=== PATIENT | female | born 2000 | race Caucasian/White ===

== ENCOUNTER 2024-05-23 15:53 | Outpatient (CLI) | payer OTHER, SELFPAY ==
--- NOTE | ~2024-05-23 | US_ITS ---
EXAMINATION: US OB <= 14 weeks fetus DATE: 05/23/2024 16:28 INDICATION: Establish dating of a likely first trimester of uncertain dates. TECHNIQUE: Real-time pelvic ultrasound utilizing transabdominal probe was performed. The quiana bian radiologist was not present for the study. COMPARISON: None. FINDINGS: The uterus measures 8.9 x 5.6 x 6.6 cm. There is an intrauterine gestational sac. A yolk sac and fet al pole are identified. The crown rump length measures 1.7 cm, which correlates with an estimated ges tational age of 8 weeks and 0 days. heart motion is identified measuring 151 beats per minute ( bpm) by M-mode Doppler. The bilateral ovaries are not visualized. There is no free fluid in the pelvi s. IMPRESSION: 1. Single living fetus with heart rate of 151 bpm. 2. Gestational age by ultrasound of 8 weeks 0 day(s) +/- 5 day(s) with ultrasound estimated date of delivery (CLAUDIA) of 01/02/2025. Reviewed, dictated and finalized at location A. IMPRESSION: 1. Single living fetus with heart rate of 151 bpm. 2. Gestational age by ultrasound of 8 weeks 0 day(s) +/- 5 day(s) with ultraso und estimated date of delivery (CLAUDIA) of 01/02/2025.
== END 2024-05-23 15:54 ==
PROVIDERS: PCP Advanced Practice Midwife; Visit Provider Advanced Practice Midwife
DX: Z36.87 Encounter for antenatal screening for uncertain dates (principal); Z3A.08 8 weeks gestation of pregnancy
CPT/HCPCS: 76801

== ENCOUNTER 2024-07-28 13:48 | Observation (INO) | payer OTHER, SELFPAY ==
[2024-07-28 14:16] VITALS: BP 123/54; PULSE 69
[2024-07-28 14:30] VITALS: BP 107/58; PULSE 80
--- NOTE | 2024-07-28 14:39 | OBADM ---
This patient, Celia Koehler, admitted to the OB room OB Post 117 for observation. Patient/family oriented to hospital policies and general routines including ID bracelet, bed and alarms, visiting hours, pain management, procedures, bathroom and other care routines, personal items, smoking policy, room service/diet, and visiting hours. Patient/Family are encouraged to report perceived risks to care and to ask questions if they do not understand what they are told or what they should do.
[2024-07-28 14:46] VITALS: BP 108/52; PULSE 85
[2024-07-28 15:00] VITALS: BP 106/58; PULSE 70
--- NOTE | 2024-07-28 15:21 | PC.NURSE ---
1400--Pt reports fall and scrape on lower left abdomen. Pt denies falling directly on abdomen, denies bleeding, leaking or cramping. reports swollen ankle so directed to go to ED if pain continues.
--- NOTE | 2024-07-28 15:27 | PC.NURSE ---
1526--Reported to Gela Villalobos CNM that KB would not be resulted until 1800. DC orders given and pt will be notified if positive result.
--- NOTE | 2024-08-05 14:36 | PM.OBTRLD ---
OB - Triage/Final Diagnosis Visit Information Date of evaluation: 07/28/24 Reason for evaluation: other (minor trauma) Comments/Additional reasons for admission: I have assessed the risk for this patient, Celia Koehler, and determined that she would benefit from observation care. Evaluation Laboratory results: Laboratory Tests 07/28/24 14:26 KB Hemoglobin Negative Comments: Pt evaluated on unit by RN. Plan of care discussed with CNM. FHTs reassuring. VSS. No evidence of active labor or ROM.
== END 2024-07-28 15:40 | disposition home or self-care (01) ==
PROVIDERS: Admitting Provider Obstetrics & Gynecology Gynecology; PCP Internal Medicine; Visit Provider Obstetrics & Gynecology Gynecology
DX: Z04.3 Encounter for examination and observation following other accident (principal); O26.892 Other specified pregnancy related conditions, second trimester; W19.XXXA Unspecified fall, initial encounter; Z3A.17 17 weeks gestation of pregnancy
CPT/HCPCS: 36415; 85460; G0378; G0379

== ENCOUNTER 2024-08-10 11:15 | Outpatient (CLI) | payer OTHER, SELFPAY ==
--- NOTE | ~2024-08-10 | US_ITS ---
EXAMINATION: US OB /maternal detail DATE: 08/10/2024 12:00 INDICATION: survey TECHNIQUE: Multiple obstetric sonographic images performed. FINDINGS: No prior studies for comparison. There is a single living fetus in vertex presentation. The placenta is posterior/fundal without plac enta previa. Amniotic fluid volume is subjectively normal. cardiac activity and movement is noted with a heart rate of beats per minute. The following anatomy was identified as normal: 4 chamber heart 3 vessel cord cord insertion kidneys urinary bladder stomach spine diaphragm ventricles cisterna magna cerebellum The following biometric data were obtained: BPD: 49mm corresponds to gestational age 20 weeks 5 days. Head circumference: 175 mm corresponds to gestational age 20 weeks 0 days. Abdominal circumference: 139 mm corresponds to gestational age 19 weeks 2 days. Femur length: 29 mm corresponds to gestational age 19 weeks 0 days. Head circumference to abdominal circumference ratio: 1.26 (normal range for expected gestational age is 1.08-1.26). Estimated weight: 285 grams +/- 43 grams using Hadlock method. IMPRESSION: 1: Single living intrauterine with an estimated gestational age of 19weeks 3days by initial ultrasound measurements, with an EDC of 01/01/2020 in vertex presentation. 2. Normal survey. Reviewed, dictated and finalized at location B. IMPRESSION: 1: Single living intrauterine with an estimated gestational age of 19 weeks 3days by initial ultrasound measurements, with an EDC of 01/01/2020 in parisa sharon presentation. 2. Normal survey.
== END 2024-08-10 11:16 | disposition home or self-care (01) ==
LOC: MICIMG 11:16
PROVIDERS: PCP Advanced Practice Midwife; Visit Provider Advanced Practice Midwife
DX: Z36.9 Encounter for antenatal screening, unspecified (principal); Z3A.19 19 weeks gestation of pregnancy
CPT/HCPCS: 76805

== ENCOUNTER 2024-10-14 09:08 | Outpatient (CLI) | payer OTHER, SELFPAY ==
[2024-10-14 10:37] LABS: Hematocrit 35.3 % (37.0-47.0); Hemoglobin 11.9 g/dL (12.0-15.0)
[2024-10-14 10:58] LABS: Glucose 1 Hour PP 50gm Dose 109 mg/dL
[2024-10-14 11:23] LABS: Vitamin D 25 Hydroxy 36.3 ng/mL
[2024-10-14 11:39] LABS: HIV 1/2 Ab P24 Ag Result Negative (Negative)
[2024-10-14] MEDS: RHO(D) IMMUNE GLOBULIN 300 MCG/2 ML SYRINGE IM (13:51)
[2024-10-15 08:22] LABS: Rapid Plasma Reagin Non-Reactive (NonReactive)
== END 2024-10-14 09:09 | disposition home or self-care (01) ==
LOC: ANHLAB 09:10
PROVIDERS: PCP Internal Medicine; Visit Provider Advanced Practice Midwife
DX: O36.0990 Maternal care for other rhesus isoimmunization, unspecified trimester, not applicable or unspecified (principal); Z67.91 Unspecified blood type, Rh negative; O99.280 Endocrine, nutritional and metabolic diseases complicating pregnancy, unspecified trimester; E55.9 Vitamin D deficiency, unspecified; Z36.9 Encounter for antenatal screening, unspecified
CPT/HCPCS: 36415; 82306; 82947; 85014; 85018; 85461; 86592; 86703; 86850; 86900; 86901; 90384; 96372; G0432; J2790

== ENCOUNTER 2024-10-26 09:41 | Outpatient (CLI) | payer OTHER, SELFPAY ==
--- NOTE | ~2024-10-26 | US_ITS ---
OB follow-up ULTRASOUND (Doppler ultrasound interrogation techniques used as needed for this exam.) Ordering provider: Karyn Villalobos CNM History: . size less than date . Comparison: None. Findings: : Single live fetus of longitudinal lie and vertex presentation. Single intrauterine fetus with heart rate measured at 134 bpm. -- BIOMETRICS: BPD: 82 mm = 32 weeks and 5 days. HC: 290 mm = 31 weeks and 6 days. FL: 55 mm = 29 weeks and 0 days. AC: 261 mm = 30 weeks and 2 days. HC/AC: 1.11 FL/BPD: 67.6 FL/AC: 21.1. CI: 81.4 Mean US age is 31 weeks for an CLAUDIA on December 28, 2024. Extrapolated weight is 1531 gm. EFW/GP: 35%. Three vessel cord is seen. Amniotic fluid volume is subjectively within normal limits. Measuring 17.6 cm. 5th percentile is 9 cm . 95th percentile is 23.4 cm. Largest pocket measures 5.2 cm. No evidence for significant placental anomalies including placenta previa. Mesentery as posterior The cervical length is 3.1 cm which is within normal limits. IMPRESSION: Single live fetus of gestation age 31 weeks. CLAUDIA is December 28, 2024. Reviewed, dictated and finalized at location A. FRAME SYSTEMS ADMINISTRATOR
== END 2024-10-26 09:42 | disposition home or self-care (01) ==
LOC: MICIMG 09:41
PROVIDERS: PCP Advanced Practice Midwife; Visit Provider Advanced Practice Midwife
DX: O36.5930 Maternal care for other known or suspected poor fetal growth, third trimester, not applicable or unspecified (principal); Z3A.31 31 weeks gestation of pregnancy
CPT/HCPCS: 76816

== ENCOUNTER 2024-12-30 04:05 | Observation (INO) | payer OTHER, SELFPAY ==
[2024-12-30 06:00] VITALS: BP 107/70; PULSE 87
[2024-12-30 06:02] VITALS: BMI 28.4
--- OUTSIDE RECORDS SUMMARY | 2024-12-30 06:02 | XMS_ITS | Clinical Summary ---
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 Gender Identity Not on file Sexual Orientation Not on file Plan of Treatment Health Maintenance Due Date Last Done Comments Hepatitis C Virus (HCV) Screening 1999 Human Papillomavirus (HPV) Immunization (1 - 3-dose series) 2014 Pap Smear 2020 Influenza Immunization (#1) 2024 SARS-COV-2 Immunization ( season) 2024 Respiratory Syncytial Virus (RSV) Immunization (Adult) (1 - 1-dose 75+ series) 2074 Hepatitis B Immunization Completed 001, 07/07/2000, 04/01/2000 DTaP/Tdap/Td Immunization Discontinued 2009, 07/14/2004, 06/21/2001, Additional history exists TdaP Immunization Completed 07/05/2010 Meningococcal Immunization (ACWY) Completed 07/26/2016 Pneumococcal Immunization Combined Aged Out No longer eligible based on patient's age to complete this topic Rotavirus Immunization Aged Out No lo nger eligible based on patient's age to complete this topic
--- NOTE | 2024-12-30 06:14 | PC.NURSE ---
Pt discharged home undelivered in stable condition per order from Dr. Prieto. Discharge instructions explained and given to pt, pt stated understanding, all questions and concerns answered. Pt ambulated out of department with all belongings.
== END 2024-12-30 06:20 | disposition home or self-care (01) ==
PROVIDERS: Admitting Provider Obstetrics & Gynecology Gynecology; PCP Advanced Practice Midwife; Visit Provider Obstetrics & Gynecology Gynecology
DX: O47.1 False labor at or after 37 completed weeks of gestation (principal); Z3A.39 39 weeks gestation of pregnancy
CPT/HCPCS: G0378; G0379

== ENCOUNTER 2024-12-30 16:39 | Observation (INO) | payer OTHER, SELFPAY ==
--- OUTSIDE RECORDS SUMMARY | 2024-12-30 19:03 | XMS_ITS | Clinical Summary ---
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
--- NOTE | 2025-01-01 07:52 | PM.OBTRLD ---
OB - Triage/Final Diagnosis Visit Information Reason for evaluation: threatened labor Comments/Additional reasons for admission: I have assessed the risk for this patient, Celia Vicente Koehler, and determined that she would benefit from observation care.
== END 2024-12-30 19:22 | disposition home or self-care (01) ==
PROVIDERS: Admitting Provider Obstetrics & Gynecology Gynecology; PCP Advanced Practice Midwife; Visit Provider Obstetrics & Gynecology Gynecology
DX: O47.9 False labor, unspecified (principal); Z3A.00 Weeks of gestation of pregnancy not specified
CPT/HCPCS: G0378; G0379

== ENCOUNTER 2024-12-30 23:41 | Inpatient (IN) | payer OTHER, SELFPAY ==
[2024-12-31] VITALS (142 sets, daily range): BP systolic 57–124; BP diastolic 26–83; PULSE 58–152; RESP 16–18; TEMP 36.3–37.1; O2SAT 93–100; BMI 28.1
--- OUTSIDE RECORDS SUMMARY | 2024-12-31 00:04 | XMS_ITS | Clinical Summary ---
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
[2024-12-31] MEDS: LACTATED RINGERS 1,000 ML 125 ML IV CONT ×2 (00:12→01:41)
--- NOTE | 2024-12-31 00:12 | LDADM ---
This patient, Celia Koehler, was admitted to Labor/Delivery/Recovery 106 on 12/30/24 at 23:41. Plans for labor, pain management and were discussed with patient. Patient/family oriented to hospital policies and general routines including ID bracelet, bed and alarms, visiting hours, pain management, procedures, bathroom and other care routines, personal items, smoking policy, room service/diet and guest tray routines, security routines, and visiting hours. Patient/Family are encouraged to report perceived risks to care and to ask questions if they do not understand what they are told or what they should do. See OBIX for further documentation.
[2024-12-31 00:24] LABS: Basophils Percent Auto 0.3 % (0.2-1.2); Eosinophils Absolute Auto 0.2 K/mm3 (0-0.3); Hematocrit 38.2 % (37.0-47.0); Hemoglobin 13.2 g/dL (12.0-15.0); Immature Granulocyte Absolute 0.05 K/mm3 (0.00-0.031); Immature Granulocyte Percent A 0.3 % (0-0.5); Lymphocytes Percent Auto 24.7 % (18.3-44.2); Mean Corpuscular HGB Conc 34.6 g/dl (32-36); Mean Corpuscular Hemoglobin 30.8 pg (26-34); Mean Corpuscular Volume 89.3 fl (80-100); Mean Platelet Volume 10.8 fl (7.4-10.4); Monocytes Absolute Auto 0.9 K/mm3 (0.1-0.6); Monocytes Percent Auto 6.2 % (2.6-8.5); Neutrophils Absolute Auto 9.8 K/mm3 (1.3-6.7); Neutrophils Percent Auto 67.5 % (45.5-73.1); Platelet Count Result 297 k/mm3 (150-375); Red Blood Count 4.28 M/mm3 (4.2-5.4); White Blood Count 14.6 K/mm3 (4.5-10.0)
[2024-12-31 01:14] LABS: HIV 1/2 Ab P24 Ag Result Negative (Negative)
--- NOTE | 2024-12-31 01:56 | P.PNAN_ITS ---
Anes - Eval Pre Procedure Procedure: Labor epidural Date/Time: 12/31/24 01:56 Surgeon: José Preop Diagnosis: Abdominal pain with contractions Pre Op Diagnosis: Contractions Patient Data Age: 24 Gender: F Height: 1.68 m Weight: 79.09 kg Last Vital Signs Temp 97.8 F 12/31/24 01:24 Pulse 69 12/31/24 01:45 BP 123/73 12/31/24 01:45 Pulse Ox 99 12/31/24 01:54 O2 Del Method Room Air 12/31/24 00:12 Allergies Allergy/AdvReac Type Severity Reaction Status Date / Time walnut Allergy Mild Swelling Verified 12/14/24 12:26 of Lip/Tongue/Throat Penicillins Allergy Unknown Rash Verified 12/14/24 12:26 fish Allergy Mild wheezing Uncoded 12/14/24 12:26 shellfish Allergy Mild wheezing Uncoded 12/14/24 12:26 Home Medications ?Medication ?Instructions ?Recorded ?Confirmed ?Type hydroxyzine HCl 25 mg tablet 25 mg PO BID PRN anxiety #60 tabs 07/07/22 Rx Laboratory Tests 12/31/24 00:07 WBC 14.6 H K/mm3 (4.5-10.0) RBC 4.28 M/mm3 (4.2-5.4) Hgb 13.2 g/dL (12.0-15.0) Hct 38.2 % (37.0-47.0) MCV 89.3 fl (80-100) MCH 30.8 pg (26-34) MCHC 34.6 g/dl (32-36) RDW 13.0 % (11.5-14.5) Plt Count 297 k/mm3 (150-375) MPV 10.8 H fl (7.4-10.4) Immature Gran % (Auto) 0.3 % (0-0.5) Neut % (Auto) 67.5 % (45.5-73.1) Lymph % (Auto) 24.7 % (18.3-44.2) [place] % (Auto) 6.2 % (2.6-8.5) Eos % (Auto) 1.0 % (0-4.4) Baso % (Auto) 0.3 % (0.2-1.2) Lymph # (Auto) 3.60 H K/mm3 (0.9-3.2) [place] # (Auto) 0.9 H K/mm3 (0.1-0.6) Eos # (Auto) 0.2 K/mm3 (0-0.3) Baso # (Auto) 0.0 K/mm3 (0.0-0.1) Abs Immat Gran (auto) 0.05 H K/mm3 (0.00-0.031) Absolute Neuts (auto) 9.8 H K/mm3 (1.3-6.7) Absolute Nucleated RBC 0.000 K/mm3 (0.0-0.012) Nucleated RBC % 0.0 % (0.0-0.2) RPR Pending RPR Titer Add Testing Pending HIV 1&2 Ab/P24 Ag 4thGn Negative (Negative) Blood Type A Negative Antibody Screen Pending : gestational age HCG: positive Patient hx anesthesia problems: none Family hx anesthesia problems: none Results Review: All pre-operative results and documents have been reviewed as part of the pre- operative evaluation. [facility] Past Medical History Medical History (Updated 12/31/24 @ 01:57 by Raymundo Reddy Jr., CRNA) and not yet delivered Overweight (BMI 25.0-29.9) Anxiety and depression Food allergy Fatigue Anxiety Surgical History Surgical History [place] teeth removed June 2019 Family History Family History Father Hypertension Mother Family history of allergic disorder Skin disorder Grandparent Family history of cardiovascular disease Fibromyalgia Social History Social History Smoking status: Never smoker Tobacco type: e-cigarettes/vaping Smokeless tobacco user: other Smoking end date: 11/13/16 Alcohol intake: current Alcohol use details: Pt drinks socially. Substance use: never Do You Feel Safe in your Home?: Yes Lack of Transportation: No Lack of Food: Never True Current Housing: I Have Housing Concerned About Future Housing: No Difficulty Paying Gas/Electric Bills: No Difficulty Paying for Meds: No Currently Unemployed: No Education: Associate Degree Difficulty w/ Childcare or Family Care: No Spiritual care concerns: No Exam Day of Procedure 12/31/24 01:56 Patient weight: overweight
[2024-12-31] MEDS: PHENYLEPHRINE 1,000 MCG/10 ML SYRINGE 100 MCG IV PUSH ×2 (02:22→02:29)
[2024-12-31] MEDS: OXYTOCIN 30 UNITS/NS 500 ML 30 UNITS/500 ML BAG IV CONT (05:00)
--- NOTE | 2024-12-31 07:40 | WPDOBADMIT ---
Obstetrics - Admit Note Admission Note: record reviewed. No pertinent additions to the history and/or any subsequent changes in the physical findings that are not consistent with the expected course of the were found. Additions to the history and/or subsequent changes in the physical findings follow. None.Here in labor. SROM around 3 am. Pitocin to augment if needed. FHT cat I
--- NOTE | 2024-12-31 09:06 | P.PCNOB_ITS ---
OB - Vaginal Delivery Note Procedure Delivery date: 12/31/24 Induction method: None Delivery augmentation: Pitocin Delivery monitor: External FHT and External Uterine Route of delivery: Episiotomy description: None Laceration Description: Periurethral (upper right vaginal to periurethral) Delivery repair: vicryl (3-0) Specimen: No Quantitative Blood Loss (ml): 100 Anesthesia type: Epidural Disposition: Floor Complications: No immediate complications [place] Baby Date of : 12/31/24 Gestational Age by Date: 39 (39 6/7) gender: Male presentation: vertex position: Right Occiput Anterior Placenta delivery description: Spontaneous Cord Vessel Description: 3 Vessels and Delayed Cord Clamping score one minute: 8 score five minutes: 9
--- NOTE | 2024-12-31 09:07 | P.DS_ITS ---
DS: Admitting Diagnosis Discharge Date 01/02/25 Admitting Diagnosis labor 39 6/7 wks DS: Discharge Diagnosis Discharge Diagnosis (1) (normal spontaneous vaginal delivery): Code(s): O80 - Encounter for full-term uncomplicated delivery Status: Acute OB - DS: Summary OB Procedures : Ultrasound OB Procedures Intrapartum: Spontaneous Vag Delivery OB Procedures: : None Peripartum Data Delivery Method: Natural Vaginal Laceration Description: Periurethral (upper right vaginal to periurethral) Episiotomy description: None complications: none Status at Discharge Functional status at discharge: independent ambulation Overall status at discharge: patient is progressing back to baseline Time Spent with Patient Time attestation: Total time spent providing and/or coordinating discharge services: DS: Data Data Completed and Pending Labs on day of discharge: Labs from last 24 hours 12/31/24 00:07 WBC 14.6 H RBC 4.28 Hgb 13.2 Hct 38.2 MCV 89.3 MCH 30.8 MCHC 34.6 RDW 13.0 Plt Count 297 MPV 10.8 H Immature Gran % (Auto) 0.3 Neut % (Auto) 67.5 Lymph % (Auto) 24.7 [place] % (Auto) 6.2 Eos % (Auto) 1.0 Baso % (Auto) 0.3 Lymph # (Auto) 3.60 H [place] # (Auto) 0.9 H Eos # (Auto) 0.2 Baso # (Auto) 0.0 Abs Immat Gran (auto) 0.05 H Absolute Neuts (auto) 9.8 H Absolute Nucleated RBC 0.000 Nucleated RBC % 0.0 RPR Pending RPR Titer Add Testing Pending HIV 1&2 Ab/P24 Ag 4thGn Negative Blood Type A Negative Antibody Screen Positive Antibody Identification Inconclusive Antigen Identification Cancelled LUIZA, IgG Interpret Negative LUIZA, Poly Interpret TNP LUIZA, Complement Interp Negative Discharge Plan Discharge Attending physician on discharge: Paulina Prieto Discharging Clinician: Paulina Prieto Anticipated Discharge Date/Time: 01/02/25 09:08 Patient Disposition: Home, Self-Care Activity: may shower and pelvic rest Diet: regular Patient Instructions: Antibiotic Form Patient Language: Belarusian Stand Alone Forms: General Discharge Information Follow-up/Referrals: Paulina Prieto MD [Physician] - 6 Weeks Discharge Medications: New norethindrone (contraceptive) 0.35 mg tablet 0.35 mg PO DAILY Qty: 84 3RF Continued hydroxyzine HCl 25 mg tablet 25 mg PO BID PRN (Reason: anxiety) Qty: 60 3RF Date of admission: 12/30/24 23:41 Primary Care Provider: Karyn Villalobos Admitting Provider: Paulina Prieto Attending physician on admission: Paulina Prieto Condition: Stable
[2024-12-31] MEDS: OXYTOCIN 30 UNITS/NS 500 ML 30 UNITS/500 ML BAG 125 UNITS IV CONT (09:10)
--- NOTE | 2024-12-31 11:40 | OBPPTRN ---
Patient transferred to post room #288 via (wheelchair). Support person present. Oriented to unit, room, information board, rooming in, admission packet and security measures. Patient verbalizes understanding.
[2024-12-31] MEDS: IBUPROFEN 600 MG TABLET PO (11:57)
[2024-12-31] MEDS: DOCUSATE SODIUM 100 MG CAPSULE PO ×2 (11:58→16:38)
[2024-12-31 12:36] LABS: Syphilis IgG/IgM Antibody Negative (Negative)
--- NOTE | 2024-12-31 12:45 | PC.NURSE ---
1245: Met with mother to assess for needs and provide initial feeding education. Mom is encouraged to allow baby lots of skin to skin time with unlimited access to . Baby is very sleepy and we tried waking him by unwrapping, placing in the open crib, and placing him skin to skin with mom. He did not rouse from his deep sleep state or make any attempts to latch or feed. Mom is encouraged to keep him skin to skin on her chest and observe for early feeding cues. If baby is not showing cues in 30 minutes, we will try to wake him again. 1320: Mother has baby skin to skin and he is still sleeping soundly. We moved him to the open crib and attempted to wake him. He roused much better than the last attempt. We placed him in football position on both sides. He gave a few attempts to open his mouth but not wide enough or eager enough to latch. Mom was able to express 4-5 drops of colostrum that were placed in baby's mouth. Encouraged mother that he is in his normal sleepy period and that we can allow him more time before trying to feed again. He is a stable, term without any risk factors for hypoglycemia. Reviewed using the blue feeding sheet to record time and duration of feeding attempts and drops of colostrum given. We will attempt again in an hour or if baby exhibits any feeding cues before that. Mother voiced understanding of the education shared, to call for assistance if the does not latch or if there is discomfort with . name/number on communication board. Reported to the Primary RN.?
--- NOTE | 2024-12-31 15:00 | PC.NURSE ---
1440- Mom up to bathroom. Will check back about feeding soon. 1500- Mom back to bed and attempting to feed for awhile. Baby is awake and crying. He is much more vigorous than our previous feeding attempts. Mom is trying in football position but baby is unable to maintain a latch. His suck was assessed with a gloved finger and he clamped down rather than sucked and seemed disorganized. We placed him in cross cradle on the left breast and he did latch 3 times with several suckles each time. Mom has drops of colostrum that leak while attempting to feed. Latching worked well when we rolled mom's nipple to help it abida a little more. Baby worked to latch for at about ten minutes and then fell into a deep sleep state. Encouraged mom that he is improving from the last time and we need to continue watching for early feeding cues. Mom is agreeable to this plan and will call out for assistance. Reported to primary RN.
[2025-01-01] MEDS: IBUPROFEN 600 MG TABLET PO ×2 (01:50→19:18)
[2025-01-01 01:52] VITALS: BP 112/75; PULSE 63; RESP 16; TEMP 36.6; O2SAT 99
[2025-01-01 06:20] LABS: Hematocrit 31.6 % (37.0-47.0); Hemoglobin 10.5 g/dL (12.0-15.0)
--- NOTE | 2025-01-01 07:00 | PC.NURSE ---
Introductions were made, then consulted with patient to assess needs related to . Feeding attempts were made overnight but were unsuccessful. Mother states that she had difficulty keeping awake for feedings. Upon entering room, was swaddled in the bassinet. This RN unwrapped infant and demonstrated methods to wake for feedings. During this time, spit up a large amount of clear fluid. Encouraged understanding of the benefits of skin to skin (demonstrating unwrapping and placing upright on her chest), stimulating with massage touch, changing positions to encourage wakefulness, how to watch for early feeding cues, responsive feeding, feeding on demand (aiming for 8-12 times in 24 hours, about every 2-3 hours), milk production, building/maintaining a milk supply, duration of feeding, signs of adequate intake/output and how to record on the feeding sheet. Mother works well with her infant with encouragement and education. Reviewed positioning and ear, shoulder, hip alignment, supporting the breast to facilitate a deep latch, asymmetrical latch (off-center), leading with the chin with a big, open, wide gape and body close to mother. Attempts were made to place on the right breast for feeding - mothers nipples are flat. After several attempts were made on the right side (with and without nipple shield) infant was switched to the left breast - latched optimally to the left breast in cross cradle position. Education given to the mother of how to visualize the suckling (with good rocking jaw motion), swallows (dropping of the lower jaw) and how to listen for drinking at the breast (the ka sound). was able to maintain latch without pain to mother protecting the nipple with optimal positioning and latching. Reviewed comfort measures of healing with a warm, wet washcloth to rinse breast, then leave open to air-dry, good handwashing when or touching the breast/nipples to prevent infection. Mother voiced understanding of skin to skin, stimulating with massage touch, responsive feedings, hand expressed colostrum, talking to to encourage if it has been 2 -2.5 hours since the start of the last , to call if infant does not latch, or if there is discomfort with . Resources used for education were facilitated with the [visual educational handouts/ tool/mom and baby guide], Inpatient/outpatient resources provided with business card, feeding sheet, name written on the communication board, and the mom/baby guide. Parents voiced understanding of information, demonstrated learning and will call if there is a request for assistance. Reported to the Primary RN.
--- NOTE | 2025-01-01 07:36 | P.PNOB_ITS ---
OB - PN: Subj Subjective Date/time seen: 01/01/25 07:36 Patient comments: no complaints and pain well controlled baby status: doing well OB - PN: Obj Data Labs 01/01/25 06:12 Labs: Laboratory Results - last 24 hr 12/31/24 01/01/25 00:07 06:12 Hgb 10.5 L Hct 31.6 L Syphilis IgG/IgM Ab Negative RPR Titer Cancelled RPR Cancelled RPR Titer Add Testing Cancelled T.pallidum Ab (FTA-ABS) Cancelled T.pall Ab(FTA-ABS)Reflex Cancelled Blood Type A Negative Antibody Screen Negative Screen Negative Baby's Blood Type O pos Baby's LUIZA Negative Doses of RhIg Required 1 OB - PN A/P Plan day: 1 Plan: routine care Time Spent With Patient Time: Total time spent is greater than 50% in coordination of care (as documented) at patient's floor/unit and/or counseling patient: Exam 2 : Bimanual exam- vagina & uterus: other (Uterus firm, nt @U)
[2025-01-01 07:45] VITALS: BP 108/55; PULSE 54; RESP 16; TEMP 36.3; O2SAT 98
[2025-01-01] MEDS: MULTIVIT/MIN/PREN/FOL AC/IRON TABLET 1 TAB PO (10:01)
[2025-01-01] MEDS: RHO(D) IMMUNE GLOBULIN 300 MCG/2 ML SYRINGE IM (10:02)
[2025-01-01] MEDS: DOCUSATE SODIUM 100 MG CAPSULE PO ×2 (10:02→17:31)
--- NOTE | 2025-01-01 13:31 | WPDANLDPN2 ---
Anes-Prog Note L&D Date/Time: 01/01/25 13:31 Comfortable throughout: labor and delivery Neuraxial method: epidural Epidural/Spinal procedure site: clean & non-tender Neuro status: Neuro function grossly intact. Cardiovascular status: normal Respiratory status: normal Airway patency: baseline Mental status: baseline Post-Op hydration status: normal Vital Signs: Last Vital Signs Temp 97.4 F L 01/01/25 07:45 Pulse 54 L 01/01/25 07:45 Resp 16 01/01/25 07:45 BP 108/55 L 01/01/25 07:45 Pulse Ox 98 01/01/25 07:45 O2 Del Method Room Air 01/01/25 07:30 Pain score (VAS): 0 I/O: Intake & Output 12/31/24 01/01/25 01/01/25 23:59 07:59 15:59 Intake Total 0 Balance 0 Post-procedural complaints: none Patient feedback: Patient satisfied with anesthetic care.
[2025-01-01 21:02] VITALS: BP 101/62; PULSE 63; RESP 16; TEMP 36.6; O2SAT 100
[2025-01-02] MEDS: MULTIVIT/MIN/PREN/FOL AC/IRON TABLET 1 TAB PO (07:05)
[2025-01-02] MEDS: DOCUSATE SODIUM 100 MG CAPSULE PO (07:05)
[2025-01-02 07:20] VITALS: BP 98/61; PULSE 66; RESP 16; TEMP 36.7; O2SAT 98
--- NOTE | 2025-01-02 07:40 | P.PNOB_ITS ---
OB - PN: Subj Subjective Date/time seen: 01/02/25 07:40 Patient comments: no complaints and pain well controlled baby status: doing well OB - PN: Obj Data Labs 01/01/25 06:12 Labs: Laboratory Results - last 24 hr 01/01/25 06:12 Blood Type A Negative Antibody Screen Negative Screen Negative Baby's Blood Type O pos Baby's LUIZA Negative Doses of RhIg Required 1 OB - PN A/P Plan day: 2 Plan: routine care, discharge home and other (POP for bc) Time Spent With Patient Time: Total time spent is greater than 50% in coordination of care (as documented) at patient's floor/unit and/or counseling patient: Exam 2 : Bimanual exam- vagina & uterus: other (Uterus firm, nt @U)
--- NOTE | 2025-01-02 11:43 | PC.NURSE ---
Consulted with mother concerning needs and she shared her ability to independently latch infant optimally without pain. Mother is feeding appropriately for growth of and understands stimulating to eat if needed. Infant has had appropriate feedings in the last 24 hours meets the outcomes for weight, output, blood sugar and jaundice at this time. Reinforced understanding of milk production, transition of milk, signs of adequate intake, transition of stool, prevention/relief of engorgement, plugged ducts, mastitis, responsive watching for feeding cues, the different methods of stimulating to breastfeed 1-3 hours after the start of the last feeding, community resources, and when to call a provider using the resource of the feeding sheet along with the mom and baby guide. Mother voiced understanding of the information shared, is confident to continue effectively her infant at home, when to call for assistance, denies any additional assistance or education at this time. Reported to the Primary RN.
[2025-01-03 10:44] VITALS: BP 129/77; PULSE 80; RESP 18; TEMP 36.5; O2SAT 100
--- NOTE | 2025-01-03 11:58 | PC.NURSE ---
Patient was here for follow up visit. Weighted feed was completed: Pre: 3549g Post: 3630g +2.8 ounces Mother states that was feeding constantly throughout the night and was not satisfied. Some feedings were said to be >60 minutes in length. Mother also states concerns that has not had very many wet/stool diapers since discharge on 01/02. This RN observed mother latch . Infant tucks his bottom lip when feeding. Assessment of infants mouth completed and infant may have a slight tongue tie. Parents will bring this to their pediatricians attention at their follow up visit. Mother has blisters bilaterally on her nipples from prolonged feeds and possible shallow latch. A nipple shield was given to mother to assist with her nipple pain along with gel cooling pads to take home. Instructed mother on application of nipple shield. Infant latched optimally with the nipple shield in place and nursed on the left breast for 15 minutes, then the right breast for an additional 15 minutes. appears to be satisfied after feeding. Discussed second night syndrome with mother. Proper cleaning and handling of the nipple shield was discussed with parents.
== END 2025-01-02 13:46 | disposition home or self-care (01) | DRG 807 ==
LOC: ANHLDR 12-31 09:08 → ANHOB2 12-31 11:30
PROVIDERS: Admitting Provider Obstetrics & Gynecology Gynecology; PCP Advanced Practice Midwife; Visit Provider Obstetrics & Gynecology Gynecology
DX: O71.82 Other specified trauma to perineum and vulva (principal); Z37.0 Single live birth; O70.0 First degree perineal laceration during delivery; Z3A.39 39 weeks gestation of pregnancy
CPT/HCPCS: 36415; 85014; 85018; 85025; 85461; 86592; 86593; 86703; 86850; 86880; 86900; 86901; 86902; 90384; A9270; G0432; J2371; J2590; J2790; J2795; J7120